=== PATIENT | female | born 1960 | race Caucasian/White ===

== ENCOUNTER 2019-03-29 13:21 | Observation (INO) ==
--- NOTE | 2019-03-29 09:24 | Anesthesia Evaluation PreOp ---
Date of Encounter: 03/29/19 Time of Encounter: 14:36 - Past History Planned Operation: Left Total Knee Arthroplasty Cardiac History: HTN, Hyperlipidemia Pulmonary History: Former smoker (quit 2 years ago), Snore FLORAL DECORATOR History: Other (chronic back pain) Other Medical History: GERD Anesthesia History: No Prior Anesthetic Complications, Past Anesthesia (back surgery) Alcohol Use: none Drug use: none Medications and Allergies Acetaminophen [Pain Relief] 500 mg PO Q6H 7 Days #28 tablet 03/29/19 [Rx] Aripiprazole [Abilify] 15 mg PO QAM 03/29/19 [History] Aspirin Enteric Coated [Aspirin EC] 325 mg PO DAILY 10 Days #20 tablet.dr 03/29/19 [Rx] Calcium Carbonate [Calcium] 500 mg PO DAILY 03/29/19 [History] Citalopram Hydrobromide [Citalopram HBr] 40 mg PO DAILY 03/29/19 [History] Clindamycin [Cleocin] 150 mg PO Q6HR 2 Days #7 capsule 03/29/19 [Rx] Docusate [Colace] 100 mg PO BID 5 Days #10 capsule 03/29/19 [Rx] OxyCODONE Immed Rel [Roxicodone 5 MG] 5 mg PO Q6HR PRN 5 Days #20 tablet 03/29/19 [Rx] Risedronate Sodium [Actonel] 35 mg PO TU 03/29/19 [History] Triamterene/Hydrochlorothiazid [Dyazide 37.5-25 Capsule] 1 cap PO DAILY 03/29/19 [History] Allergy/AdvReac Type Severity Reaction Status Date / Time No Known Allergies Allergy Unverified 07/20/15 11:46 - Meds/Allergy Pre-op Review Medications Reviewed: Yes Allergies Reviewed: Yes Beta Blockers on Current Med List: No Anesthesia Results - Labs Laboratory Tests 03/12/19 03/12/19 03/12/19 09:12 09:12 09:12 WBC 8.1 Hgb 13.0 Hct 40.3 Plt Count 228 PT 11.1 INR 1.0 APTT 30.9 Sodium 140 Potassium 3.0 L BUN 15 Creatinine 0.78 - Imaging EKG: report reviewed (08/29/2018 Sinus rhythm Nonspecific intraventricular conduction delay) Anesthesia Exam O2 Sat Height 1.6 m Height 1.6 m Weight 100.652 kg Weight 103.873 kg O2 Sat by Pulse Oximetry 96 Vital Signs Temp Pulse Resp BP Pulse Ox 97.9 F 79 18 142/85 96 03/29/19 13:32 03/29/19 13:32 03/29/19 13:32 03/29/19 13:32 03/29/19 13:32 Height: 5'3'' Weight: 221 lbs NPO (# of Hours): 8 Pain Scale: 0 Pain Scale Used: Numeric (1 - 10) - HEENT Pupil (Motor): EOMI Mallampati: III Teeth: Normal, Missing Denture Type: Upper: Complete Oral Opening: Greater than 3 - FLORAL DECORATOR LOC: Oriented FLORAL DECORATOR Motor: Normal RUE, Normal LUE, Normal RLE, Normal LLE, Normal Face FLORAL DECORATOR Sensory: Normal: RUE, LUE, RLE, LLE, Face - Cardiac Rhythm: Regular Murmur: None - Pulmonary Breath Sounds: bilateral Clear Respiratory Effort: Symmetrical Anesthesia Assess/Plan ASA Score: 2 Level of consciousness: Cooperative, Oriented, Tranquil Anesthetic Plan: General, Regional Nerve Block Regional Nerve Block Plan: Adductor canal Reason for No Neuroaxial/Regional Block: Patient refusal Monitoring Plan: Standard Monitors Recovery Plan: PACU
--- NOTE | 2019-03-29 10:14 | Discharge Summary ---
<Alvarez Liang M - Last Filed: 03/29/19 10:12> Date of Encounter: 03/29/19 - Discharge Diagnosis (1) Left knee pain Priority: Primary Status: Acute Qualifiers: Chronicity: unspecified Qualified Code(s): M25.562 - Pain in left knee (2) Status post left knee replacement Priority: Primary Status: Acute - Hospital Course Hospital course: Ms. Valverde is a 58 year old female - Time Spent with Patient Total time spent providing and/or coordinating discharge services: - Discharge Medications Prescriptions: New Docusate [Colace] 100 mg PO BID 5 Days #10 capsule Acetaminophen [Pain Relief] 500 mg PO Q6H 7 Days #28 tablet OxyCODONE Immed Rel [Roxicodone 5 MG] 5 mg PO Q6HR PRN 5 Days #20 tablet PRN Reason: Severe Pain Aspirin Enteric Coated [Aspirin EC] 325 mg PO BID 10 Days #20 tablet.dr Potassium Chloride 20 meq PO BID tab.er.prt Ascorbic Acid [Vitamin C] 500 mg PO BIDWM tablet Multivit/Ca/Min/Fe/FA [Thera M Plus] 1 tab PO DAILY tablet Ferrous Sulfate 325 mg PO BIDWM tablet Continued Risedronate Sodium [Actonel] 35 mg PO TU Citalopram Hydrobromide [Citalopram HBr] 40 mg PO DAILY Aripiprazole [Abilify] 15 mg PO QAM Triamterene/Hydrochlorothiazid [Dyazide 37.5-25 Capsule] 1 cap PO DAILY Calcium Carbonate [Calcium] 500 mg PO DAILY Home Medications: Acetaminophen [Pain Relief] 500 mg PO Q6H 7 Days #28 tablet 03/29/19 [Rx] Aripiprazole [Abilify] 15 mg PO QAM 03/29/19 [History] Calcium Carbonate [Calcium] 500 mg PO DAILY 03/29/19 [History] Citalopram Hydrobromide [Citalopram HBr] 40 mg PO DAILY 03/29/19 [History] Docusate [Colace] 100 mg PO BID 5 Days #10 capsule 03/29/19 [Rx] OxyCODONE Immed Rel [Roxicodone 5 MG] 5 mg PO Q6HR PRN 5 Days #20 tablet 03/29/19 [Rx] Risedronate Sodium [Actonel] 35 mg PO TU 03/29/19 [History] Triamterene/Hydrochlorothiazid [Dyazide 37.5-25 Capsule] 1 cap PO DAILY 03/29/19 [History] Aspirin Enteric Coated [Aspirin EC] 325 mg PO BID 10 Days #20 tablet. 04/01/19 [Rx] Ascorbic Acid [Vitamin C] 500 mg PO BIDWM tablet 04/02/19 [Rx] Ferrous Sulfate 325 mg PO BIDWM tablet 04/02/19 [Rx] Multivit/Ca/Min/Fe/FA [Thera M Plus] 1 tab PO DAILY tablet 04/02/19 [Rx] Potassium Chloride 20 meq PO BID tab.er.prt 04/02/19 [Rx] Allergies/Adverse Reactions: Allergy/AdvReac Type Severity Reaction Status Date / Time No Known Allergies Allergy Unverified 07/20/15 11:46 Primary care physician: Tisha Gonzalez - Patient Status Disposition: Transfer SNF Condition: Good - Discharge Instructions Follow Up With: Bj Rhodes MD [Partnered Physician] - 04/28/19 4:40 pm Tisha Gonzalez MD [Primary Care Provider] - Suzan Scruggs CNP [Advanced Practice Nurse] - 04/08/19 9:30 am (also 04/16 at 0930) Nathaly Chavez CNP [Advanced Practice Nurse] - 04/20/19 8:00 am Additional Instructions: Discharge Instructions: Total Knee Replacement Please call [facility] ([phone]), your Primary Care Physician, or report to the Emergency Room if you have any of the following symptoms: Nausea, vomiting, fever greater that 101.5, swelling, chest pain, shortness of breath, increased pain/redness/drainage/odor for your incision site, numbness/tingling, or any other concerning symptoms. ACTIVITY:Weight-bearing as tolerated. You may progress off support (crutches or walker) as tolerated. Incentive Spirometer 10 times an hour. MEDICATIONS: Upon discharge resume your home medications. Take all the medications as prescribed. Take a stool softener if taking narcotic pain medications. Stool softeners are only effective if you drink enough fluids. Drink 6-8 glass of water or fluids a day, unless this is not allowed for another health problem. Despite using stool softeners, if you haven't had a bowel movement in 3 days, please switch to a gentle laxative. Gentle laxatives are sold over the counter. You should have a bowel movement within 24 hours, if not call the office. You will be discharged from the hospital with a prescription for pain medication. You are encouraged to decrease the use of narcotic pain medication as tolerated. Should you require a refill, please call the office. [facility] prescribes narcotic pain medication for only 4-6 weeks after surgery. If you require pain medication beyond this time period, you may be referred to your Primary Care Physician or to the Pain Clinic for further evaluation. Plan ahead for refills on pain medication as many narcotics either need to be picked up at the office or mailed. It is best to call 48-72 hours in advance of needing a prescription refill so you don't run out of medication. To help control the post-operative pain, you may take NSAIDs (Aleve,Advil, Motrin, Ibuprofen, Naprosyn) or Tylenol as prescribed on the bottle in addition to the pain medication. ANTICOAGULATION (blood thinners): Continue your Aspirin, Lovenox or Coumadin as prescribed to help prevent a blood clot in the leg or in the lungs. As long as your incision remains dry and you tolerate the NSAIDs (Aleve, Advil, Motrin, ibuprofen, naprosyn), it is OK to use the NSAIDS while you are taking your anticoagulation medication. Should your incision start to drain, stop the NSAID and contact our office. Common symptoms of blood clot in the legs include: localized pain, swelling, calf tenderness, redness or discoloration of the skin. Blood clot in the lung symptoms include: shortness of breath, rapid pulse, sweating, and chest pain that worsens with deep breathing, coughing up blood, lightheadedness, feelings of anxiety. If you experience any of these symptoms notify your physician immediately, go to the emergency room, or if having trouble breathing, call 911. WOUND CARE: Leave the dressing on for 7 to 10days. You may change the dressing if it becomes saturated greater than 50%. Do not get the dressing wet at anyti me. Wash your hands with antibacterial soap, rinse and dry prior to any wound care. If you have saul the visiting nurse or rehab facility can remove the stapes 10-14 days after surgery and place steri-strips across the wound. Leave the steri-strips in place until they fall off on their won. You may let water from the shower run on top of the steri-strips. If you do not have a visiting nurse or rehab facility, you will need to return to the office at 10-14 days for the saul to be removed. If you have itching or redness around the dressing call the office. FOLLOW-UP: Please follow up with your surgeon in the orthopedic clinic in 4 weeks from the day of surgery. If you have saul that need to be removed, you will need to come back to the office in 10-14 days from the day of surgery. <Ban De La Garza E - Last Filed: 04/02/19 12:53> Orders not resulted at time of discharge: Pending orders 03/29/19 17:51 Surgical Pathology [PTH] Routine Date of Encounter: 04/02/19 Time of Encounter: 11:30 - Discharge Diagnosis (1) Arthritis of left knee Priority: Primary Status: Chronic (2) Status post left knee replacement Priority: Primary Status: Acute (3) Acute blood loss anemia Priority: Secondary Status: Acute (4) Anxiety Priority: Secondary Status: Chronic (5) Hypertension Priority: Secondary Status: Chronic Qualifiers: Hypertension type: unspecified Qualified Code(s): I10 - Essential (primary) hypertension (6) Obesity Priority: Secondary Status: Chronic Qualifiers: Obesity type: unspecified obesity type Obesity classification: adult class 3 (BMI >= 40) Serious obesity comorbidity presence: unspecified whether serious comorbidity present Body mass index: BMI 40.0-44.9 Qualified Code(s): E66.01 - Morbid (severe) obesity due to excess calories; Z68.41 - Body mass index (BMI) 40.0-44.9, adult - Hospital Course Hospital course: Ms. Valverde is a 58 year old female Left robotic-assisted Total knee replacement [arthritis] 03/29/19 Patient seen at bedside. A&Ox3 Dressing and incision c/d/i No calf tenderness, erythema, or warmth. Neurovascularly intact b/l LE. Labwork, vitals, and medications reviewed. Lovenox was held 04/01- secondary to acute blood loss anemia. Patient stable h/h on day of discharge. Will have rehab check periodically to monitor and manage. Patient also with hypokalemia. Patient with known history. Supplementation began with satisfactory increase. Will have patient continue supplementation and continue with lab monitoring and PCP follow up for continued management. Pain control: Adequate Participating in therapy. All questions and concerns addressed. Educated on use of incentive spirometer, ambulation, and hydration. Patient educated on post-operative restrictions and care. Addressed: Intermittent nausea with vomiting x 2 on 04/01. Resolved that evening. Patient denies n/v or bowel concerns today. Admits to today, day of discharge. The patient's postoperative course was uneventful. Progressed from intravenous analgesic needs to oral analgesic needs only. Remained neurovascularly intact and mobilized satisfactorily. All radiographic studies were satisfactory. Patient course and disposition discussed with Dr. Rhodes. Keep outpatient follow up as scheduled. - Time Spent with Patient Total time spent providing and/or coordinating discharge services: Date of admission: 03/31/19 08:48 Primary care physician: Tisha Gonzalez Consults: 03/29/19 19:22 Consult to Nutrition [CONS] Routine Comment: Consulting Provider: NUTRITION Reason for Dietary Consult: Other Other:: Proper nutrition to facilitate wound healing Consult to Occupational Therapy [CONS] Routine Comment: Evaluate, develop and implement POC Reason for Consult: post knee surgery Does patient have active BEDREST order?: No Is patient medically & hemodynamically stable?: Yes Consult to Orthopedic Navigator [CONS] [CONS] Routine Consult to Physical Therapy [CONS] Routine Comment: Evaluate, develop and impliment POC Reason for Consult: post knee surgery Does patient have active BEDREST order?: No Is patient medically & hemodynamically stable?: Yes Consult to Leaf Blender [CONS] Routine Reason for SW Consult: post op joint replacement RT Post Op Consult [CONS] Routine Discharging clinician: Bj Rhodes Anticipated date of discharge: 04/02/19 - VTE Documentation of Mechanical Device: Venous foot pump, device Labs on day of discharge: Labs from last 24 hours 04/01/19 04/01/19 04:39 04:39 WBC 9.0 RBC 2.73 L Hgb 8.4 L Hct 25.8 L MCV 94.5 MCH 30.8 MCHC 32.6 RDW 14.8 H Plt Count 189 MPV 10.7 Sodium 138 Potassium 3.1 L Chloride 103 Carbon Dioxide 29 BUN 14 Creatinine 0.69 Est GFR ( Amer) > 60 Est GFR (Non-Af Amer) > 60 BUN/Creatinine Ratio 20 Glucose 101 Calculated Osmolality 287 Calcium 8.5 L - Impressions ITS Impressions Knee X-Ray 03/30/19 07:39 IMPRESSION: Postop left knee arthroplasty as above D/ / Long Abbasi MD / Long Abbasi MD Interpreting Provider: Long Abbasi MD - Patient Status Functional capacity at discharge: uses cane/walker Overall status at discharge: patient is progressing back to baseline - Diet and Activity Activity: as per physical therapy Diet: advance to your usual diet
--- NOTE | 2019-03-29 14:11 | History & Physical Report ---
Date of Encounter: 03/29/19 Time of Encounter: 14:11 24 Hour HP Update - Instructions Instructions: If the History and Physical is less than 30 days old and was completed prior to A.M. admission and or procedure and has NOT been updated on calendar day of procedure please complete this update prior to performing procedure. - Update Patient reports changes in Medical Condition: No Changes in examination, assessment, or condition: No Changes in Medication: No Preop tests/diagnostics Reviewed: Yes Surgery Remains Indicated: Yes Consent for Planned Operative Procedure(s) Verified: Yes - Pre-Operative Checklist Preoperative Checklist Indicated: No Prophylactic Antibiotic Ordered: Yes Is VTE Prophylaxis Indicated?: Yes
[2019-03-29] MEDS ORDERED: CeFAZolin Syr 2,000MG/20 ML 2,000 MG/20 ML SYRINGE IVPB ONE ×2 (14:33→15:50)
[2019-03-29] MEDS ORDERED: Ringers Solution, Lactated 1,000 ML IVC SCH (14:45)
[2019-03-29] MEDS ORDERED: Celecoxib 200 MG CAPSULE PO ONE (15:36)
[2019-03-29] MEDS ORDERED: Gabapentin 300 MG CAPSULE PO ONE (15:36)
[2019-03-29] MEDS ORDERED: *HR* HYDROmorphone (PF) 1 MG/ML SYRINGE IVP PRN (15:37)
[2019-03-29] MEDS ORDERED: *HR* OxyCODONE Immed Rel 5 MG TABLET PO PRN (15:37)
[2019-03-29] MEDS ORDERED: Ondansetron 4 MG/2 ML VIAL IVP ONE (15:37)
[2019-03-29] MEDS ORDERED: *HR* OxyCODONE ER (12 HR) 10 MG TABLET PO ONE (15:37)
[2019-03-29] MEDS ORDERED: ROPIVACAINE/PF/NS 0.25% 1 EACH SYRINGE INTRAART ONE (16:03)
[2019-03-29] MEDS ORDERED: Ondansetron 4 MG/2 ML VIAL ONE (16:05)
[2019-03-29] MEDS ORDERED: Lidocaine -MPF 2% 2 ML VIAL ONE (16:05)
[2019-03-29] MEDS ORDERED: *HR* FentaNYL (PF) 100 MCG/2 ML VIAL ONE (16:05)
[2019-03-29] MEDS ORDERED: *HR* Midazolam HCl 2 MG/2 ML VIAL ONE (16:05)
[2019-03-29] MEDS ORDERED: *HR* Propofol 200 MG/20 ML VIAL IVP ONE (16:05)
[2019-03-29] MEDS ORDERED: Total Joint Mixture (50 ml) IR ONE (16:15)
[2019-03-29] MEDS ORDERED: Ethanol\\Acetic Acid\\Na Ace\\Ben 1,000 ML IRRIG.SOLN IR ONE (16:36)
--- NOTE | 2019-03-29 16:36 | Anesthesia Procedures ---
Date of Encounter: 03/29/19 Time of Encounter: 16:35 Procedures: Anesthesia - Nerve Block Procedure Date: 03/29/19 Time: 16:35 Surgical Procedure: left tka Checklist: Correct Patient Identifier, Correct procedure, History checked Correct side: Left Blood Thinner: No Monitor Applied: EKG, BP, Pulse Oximetry Supplemental Oxygen via Nasal Cannula (L/min): 2 Indication: Post Op Analgesia (request per dr swift for post op pain control) Pre-op Neuro Deficits: No Block Type: Other (adductor canal) Sterile Technique: Yes Ultrasound used: Yes Anatomy identified: Yes Visual spread of Local: Yes Neuro Stimulation: No Blood on Needle Aspiration: No Smooth Injection of Local: Yes Pain with Injection of Local: No Prep: Chlorhexadine Needle: 22 x 50 mm Stimuplex Local: Ropivacaine (0.25%) Volume (cc): 20 Number of Attempts: 1 Complications: None/effective block Vitals: Vital Signs/O2 Sat/Glucose, Most Current Temp Pulse Resp BP Pulse Ox 03/29/19 16:32 76 16 134/83 100 03/29/19 16:22 73 16 139/98 96 03/29/19 13:32 97.9 F 79 18 142/85 96 Comments: pt tolerated procedure well. no complications. vss.
[2019-03-29] MEDS ORDERED: *HR* PHENYLEPHRINE 1,000 MCG/10 ML SYRINGE IVP ONE (17:17)
[2019-03-29] MEDS ORDERED: Tranexamic Acid 1,000 MG/10 ML VIAL ONE (17:29)
[2019-03-29] MEDS ORDERED: *HR* HYDROMORPHONE 2 MG/ML VIAL ONE (17:29)
--- NOTE | 2019-03-29 18:17 | Orthopedic Operative Note ---
Date of procedure: 03/29/19 Pre-op diagnosis: Left knee arthritis Post-op diagnosis: same Procedure: Procedure: Left robotic-assisted Total knee replacement Estimated blood loss: 300 cc Hardware: Metal and polyethylene replacement. [place] Femur: 3 Tibia: 4 TS insert: 9 Patella: 36 Exam Under anesthesia: 14 degree flexion contracture 5 degree varus as calculated by the robot full flexion and no instability Procedural Notes: Grade 4 arthritic changes all 3 compartments. Operative procedure: The patient was brought to the operating room and placed on the operating room table. After anesthesia was administered the operative knee was examined. Findings were noted in the exam under anesthesia. The operative extremity was prepped and draped in sterile surgical fashion. The patient received IV antibiotics prior to skin incision. A standard midline incision was made centered over the patella. The incision was made through the skin and subcutaneous tissue. A medial parapatellar tendon approach was performed. Care was taken to preserve tissue along the medial aspect of the patella. And to protect the patella tendon. The deep MCL was released off the medial tibia. The infra patella fat pad was excised. The patella was everted and cut was made at the level of the insertion of the quadriceps and patella tendon. The patella was sized the guide was seated and the lug holes are drilled. Knee was brought into flexion. Patient noted to have Grade 4 arthritic changes all 3 compartments. Steinmann pins were placed in the tibia and the femur for the tibial and femoral arrays respectively. Checkpoints were also placed in the tibia and the femur for calculation purposes. The knee including the femur and the tibial registered. Osteophytes, ACL and PCL were excised at this point. Extension and flexion were assessed with a valgus stress components were adjusted on the computer to balance the knee. Femoral cuts were made first with robotic assistance, these included the anterior cut posterior cuts chamfer cuts. Tibial cut was then performed with robotic assistance as well. Bone fragments were removed, as well as the medial and lateral meniscus. The size 3 femoral guide was seated box cut was made lug holes are drilled. The size 4 tibial tray was seated and prepared with the fin cutter. Trial reduction with the 9 TS Rozina revealed extension of 0 degree and 2 degree varus full flexion. No varus valgus instability. Trial reduction revealed excellent patella tracking. All trial components were removed all bony surfaces were irrigated. The Tibia was seated followed by the femur, The selected Rozina size was seated and secured patella. Patient had similar findings for motion and stability. The knee was closed by the PA. The knee was then irrigated out with 2 L of pulse irrigation. The extensor mechanism was closed with #2 FiberWire suture and #2 PDS suture. The subcutaneous tissue was then irrigated and closed deep with #1 PDS suture superficially with 0 PDS suture and skin was closed with zip tie The patient was then placed in a sterile dressing and a postoperative brace and transferred to recovery room in stable condition. Anesthesia: GETA Surgeon: Bj Rhodes Was there an junior assistant manager present: No Estimated blood loss (cc): 300 Condition: stable Disposition: PACU
[2019-03-29] MEDS ORDERED: Naloxone 0.4 MG/ML INJ IVP PRN (19:22)
[2019-03-29] MEDS ORDERED: traMADol 50 MG TABLET PO PRN (19:22)
[2019-03-29] MEDS ORDERED: MOM Conc 10 ML UD.LIQ PO PRN (19:22)
[2019-03-29] MEDS ORDERED: Temazepam 15 MG CAPSULE PO PRN (19:22)
[2019-03-29] MEDS ORDERED: *HR* Promethazine 25 MG/ML VIAL IVP PRN (19:22)
[2019-03-29] MEDS ORDERED: HYDROcodone BIT/Homatropine 5 MG TABLET PO PRN (19:22)
[2019-03-29] MEDS ORDERED: Sennosides 8.6 MG TABLET PO PRN (19:22)
[2019-03-29 19:52] LABS: Hematocrit 35.8 % (35.3-44.9); Hemoglobin 11.5 g/dL (11.5-15.4)
[2019-03-29] MEDS: *HR* OxyCODONE Immed Rel 5 MG TABLET PO PRN (19:54)
[2019-03-29] MEDS: Ringers Solution, Lactated 1,000 ML IVC SCH (19:54)
[2019-03-29] MEDS: Ascorbic Acid 500 MG TABLET PO SCH (19:54)
[2019-03-29] MEDS: *HR* Enoxaparin 30 MG/0.3 ML SYRINGE SQ SCH (19:56)
[2019-03-30 05:08] LABS: Basophils % 0.1 %; Hematocrit 32.1 % (35.3-44.9); Hemoglobin 10.3 g/dL (11.5-15.4); Immature Granulocytes % 0.5 % (0-4); Lymphocytes # 1.2 K/mcL (0.6-4.6); Lymphocytes % 8.4 %; Mean Corpuscular HGB Conc 32.1 g/dL (31.6-35.5); Mean Corpuscular Hemoglobin 29.9 pg (28.0-33.3); Mean Corpuscular Volume 93.3 fL (83.0-100.0); Mean Platelet Volume 10.4 fL (9.4-12.4); Monocytes # 0.6 K/mcL (0.0-1.3); Neutrophils # 12.2 K/mcL (1.6-8.9); Platelet Count 238 K/mcL (140-400); Red Blood Count 3.44 M/mcL (3.82-4.97); Red Cell Distribution Width 14.2 % (11.5-14.5)
[2019-03-30] MEDS: *HR* Enoxaparin 30 MG/0.3 ML SYRINGE SQ SCH ×2 (05:24→17:22)
[2019-03-30 05:28] LABS: Calcium 8.6 mg/dL (8.6-10.3); Potassium 3.5 mEq/L (3.5-5.1)
--- NOTE | 2019-03-30 06:36 | Orthopedics Progress Note ---
Date of Encounter: 03/30/19 Time of Encounter: 06:35 Subjective Interval history: Patient was seen this morning doing well without complaints. Afebrile vital signs stable. Operative extremity: Neurovascularly intact Dressing clean dry and intact Calves nontender Assessment and plan: Continue with postoperative care Hematocrit 32 Objective Vital signs: Vital Signs Temp Pulse Resp BP Pulse Ox 03/29/19 22:29 98.1 F 88 18 124/75 97 03/29/19 21:20 98.1 F 91 16 114/70 96 03/29/19 19:49 97.8 F 97 16 130/72 96 03/29/19 19:20 98.2 F 92 16 138/84 96 03/29/19 19:03 99.9 F H 98 16 132/82 95 03/29/19 18:53 107 16 128/98 97 03/29/19 18:43 103 16 151/91 96 03/29/19 18:33 98.7 F 110 16 169/107 95 03/29/19 16:46 74 16 134/83 100 03/29/19 16:32 76 16 134/83 100 03/29/19 16:22 73 16 139/98 96 03/29/19 13:32 97.9 F 79 18 142/85 96 Intake and Output 03/29/19 03/29/19 03/30/19 15:59 23:59 07:59 Intake Total 20 / 20 100 / 100 Output Total 300 / 300 Balance -280 / -280 100 / 100 Intake: IV Fluids 20 / 20 100 / 100 Ancef Syringe 2,000 MG/20 ML 2, 20 / 20 000 mg In 20 ml @ 200 mls/hr IVPB PREOP ONE Rx#:[id number] Ancef 2,000 MG In 0.9 % Sodium 100 / 100 Chloride 100 ML @ 200 mls/hr IVPB Q8HR LOR[facility] Rx#:[id number] Output: Estimated Blood Loss 300 / 300 Other: Weight 100.652 kg 100.5 kg Blood Glucose* 105 164 Patient Weight 03/30/19 23:59 Weight 100.5 kg - Labs CBC & BMP: 03/30/19 04:50 03/30/19 04:50 Labs: Abnormal lab results WBC 14.0 K/mcL (4.3-11.1) H 03/30/19 04:50 RBC 3.44 M/mcL (3.82-4.97) L 03/30/19 04:50 Hgb 10.3 g/dL (11.5-15.4) L 03/30/19 04:50 Hct 32.1 % (35.3-44.9) L 03/30/19 04:50 Neutrophils # 12.2 K/mcL (1.6-8.9) H 03/30/19 04:50 Creatinine 1.33 mg/dL (0.60-1.20) H 03/30/19 04:50 Est GFR ( Amer) 50 (> 60) L 03/30/19 04:50 Est GFR (Non-Af Amer) 41 (> 60) L 03/30/19 04:50 Glucose 143 mg/dL (70-105) H 03/30/19 04:50 POC Glucose 164 mg/dL (70-99) H 03/30/19 00:36 Consult Discharge Plan - Plan Referrals: Tisha Gonzalez MD [Primary Care Provider] - Prescriptions: Aspirin Enteric Coated [Aspirin EC] 325 mg PO DAILY 10 Days #20 tablet.dr Prescription Printed Clindamycin [Cleocin] 150 mg PO Q6HR 2 Days #7 capsule Prescription Printed Docusate [Colace] 100 mg PO BID 5 Days #10 capsule Prescription Printed Acetaminophen [Pain Relief] 500 mg PO Q6H 7 Days #28 tablet Prescription Printed OxyCODONE Immed Rel [Roxicodone 5 MG] 5 mg PO Q6HR PRN 5 Days #20 tablet PRN Reason: Severe Pain Prescription Printed
[2019-03-30] MEDS: Ascorbic Acid 500 MG TABLET PO SCH ×2 (08:44→17:23)
[2019-03-30] MEDS: ARIPiprazole 10 MG TABLET PO SCH (08:44)
[2019-03-30] MEDS: Multivit/Ca/Min/Fe/FA 1 TAB TABLET PO SCH (08:45)
[2019-03-30] MEDS ORDERED: NON-FORMULARY MEDICATION 1 EACH EACH (Risedronate Sodium [Actonel] 35 MG) PO SCH (14:22)
--- NOTE | 2019-03-30 18:27 | Event Note ---
Date of Encounter: 03/30/19 Time of Encounter: 15:30 PCR - POD#1 s/p left TKR 03/29/19 Patient seen at bedside, without complaints. A&O x 3 Afebrile, vital signs stable except for hypotensive this morning. Will continue to monitor. Dressings did have 2 quarter sized areas of bleeding to middle and distal incision that will continue to monitor. no calf tenderness to palpation, good dorsiflexion of foot, sensation intact distally. Labs reviewed. H/H - 10.3/32.1 stable, asymptomatic Kidney function labs declined today - will continue fluids IV and encouraged PO fluid intake. she was having didficulty with urinating, bladder scan this morning roughly 100ml. she was able to urinate on own just prior to exam and not having any symptoms at this time - continue to monitor. Pain control: adequate Participating in PT. All questions and concerns addressed. Educated on use of incentive spirometer. Encouraged ambulation and proper hydration. Patient educated on post-operative restrictions and post-operative care. Assessment and plan: Continue with postoperative care Discharge plan: ECF, awaiting auth.
[2019-03-30] MEDS: Ringers Solution, Lactated 1,000 ML IVC SCH ×2 (19:06→20:47)
[2019-03-30] MEDS: *HR* OxyCODONE Immed Rel 5 MG TABLET PO PRN (23:22)
[2019-03-31 05:16] LABS: Basophils % 0.2 %; Eosinophils # 0.1 K/mcL (0.0-0.6); Eosinophils % 0.8 %; Hematocrit 27.5 % (35.3-44.9); Hemoglobin 8.9 g/dL (11.5-15.4); Immature Granulocytes % 0.9 % (0-4); Lymphocytes # 2.4 K/mcL (0.6-4.6); Lymphocytes % 22.3 %; Mean Corpuscular HGB Conc 32.4 g/dL (31.6-35.5); Mean Corpuscular Hemoglobin 29.8 pg (28.0-33.3); Mean Platelet Volume 10.9 fL (9.4-12.4); Monocytes # 1.1 K/mcL (0.0-1.3); Monocytes % 10.5 %; Platelet Count 205 K/mcL (140-400); Red Blood Count 2.99 M/mcL (3.82-4.97); Red Cell Distribution Width 14.5 % (11.5-14.5); Segmented Neutrophils % 65.3 %; White Blood Count 10.7 K/mcL (4.3-11.1)
[2019-03-31 05:31] LABS: BUN/Creatinine Ratio 22 (6-26); Blood Urea Nitrogen 20 mg/dL (6-20); Calcium 8.6 mg/dL (8.6-10.3); Carbon Dioxide 27 mEq/L (23-29); Chloride 103 mEq/L (98-107); Glucose 121 mg/dL (70-105); Osmolality,Calculated 284 (280-300); Potassium 2.8 mEq/L (3.5-5.1); Sodium 135 mEq/L (136-145); eGFR For African Americans > 60 (> 60); eGFR For Non-African Americans > 60 (> 60)
[2019-03-31] MEDS: *HR* Enoxaparin 30 MG/0.3 ML SYRINGE SQ SCH ×2 (06:00→17:34)
--- NOTE | 2019-03-31 08:22 | Orthopedics Progress Note ---
Date of Encounter: 03/31/19 Time of Encounter: 08:22 - Assessment and Plan (1) Acute blood loss anemia Current Visit: Yes Status: Acute Subjective Interval history: Patient was seen this morning doing well without complaints. Afebrile vital signs stable. Operative extremity: Neurovascularly intact Dressing clean dry and intact Calves nontender Assessment and plan: Continue with postoperative care Potassium 2.8 due to an oral supplementation, hemoglobin 8.9 Objective Vital signs: Vital Signs Temp Pulse Resp BP Pulse Ox 03/31/19 06:29 98.3 F 70 16 113/73 95 03/31/19 03:49 97.9 F 72 16 126/76 97 03/30/19 22:13 98.5 F 72 17 111/75 96 03/30/19 19:46 98 03/30/19 19:00 98.4 F 70 16 97/66 98 03/30/19 16:40 97.8 F 67 16 101/70 95 03/30/19 12:04 98.0 F 65 18 99/64 95 Intake and Output 03/30/19 03/31/19 03/31/19 23:59 07:59 15:59 Intake Total 240 / 240 Output Total 250 / 250 Balance -250 / -150 240 / 240 Intake: Oral 240 / 240 Output: Urine 250 / 250 Other: Stool Size Small Moderate Stool Consistency liquid soft soft Stool Color Green Green # Voids 1 1 # Bowel Movements 1 1 - Labs CBC & BMP: 03/31/19 04:41 03/31/19 04:41 Labs: Abnormal lab results WBC 14.0 K/mcL (4.3-11.1) H 03/30/19 04:50 RBC 2.99 M/mcL (3.82-4.97) L 03/31/19 04:41 Hgb 8.9 g/dL (11.5-15.4) L 03/31/19 04:41 Hct 27.5 % (35.3-44.9) L 03/31/19 04:41 Neutrophils # 12.2 K/mcL (1.6-8.9) H 03/30/19 04:50 Sodium 135 mEq/L (136-145) L 03/31/19 04:41 Potassium 2.8 mEq/L (3.5-5.1) L 03/31/19 04:41 Creatinine 1.33 mg/dL (0.60-1.20) H 03/30/19 04:50 Est GFR ( Amer) 50 (> 60) L 03/30/19 04:50 Est GFR (Non-Af Amer) 41 (> 60) L 03/30/19 04:50 Glucose 121 mg/dL (70-105) H 03/31/19 04:41 POC Glucose 164 mg/dL (70-99) H 03/30/19 00:36 Consult Discharge Plan - Plan Referrals: Tisha Gonzalez MD [Primary Care Provider] - Prescriptions: Aspirin Enteric Coated [Aspirin EC] 325 mg PO DAILY 10 Days #20 tablet.dr Prescription Printed Clindamycin [Cleocin] 150 mg PO Q6HR 2 Days #7 capsule Prescription Printed Docusate [Colace] 100 mg PO BID 5 Days #10 capsule Prescription Printed Acetaminophen [Pain Relief] 500 mg PO Q6H 7 Days #28 tablet Prescription Printed OxyCODONE Immed Rel [Roxicodone 5 MG] 5 mg PO Q6HR PRN 5 Days #20 tablet PRN Reason: Severe Pain Prescription Printed
[2019-03-31] MEDS: ARIPiprazole 10 MG TABLET PO SCH (08:59)
[2019-03-31] MEDS: Multivit/Ca/Min/Fe/FA 1 TAB TABLET PO SCH (08:59)
[2019-03-31] MEDS: Ascorbic Acid 500 MG TABLET PO SCH ×2 (09:01→17:33)
[2019-03-31] MEDS: *HR* OxyCODONE Immed Rel 5 MG TABLET PO PRN ×2 (09:03→15:31)
[2019-03-31] MEDS: Ondansetron 4 MG/2 ML VIAL IVP PRN (09:30)
--- NOTE | 2019-03-31 17:50 | Event Note ---
Date of Encounter: 03/31/19 Time of Encounter: 12:50 PCR - POD#2 s/p left TKR 03/29/19 Patient seen at bedside, without complaints. A&O x 3 Afebrile, vital signs stable. hypotension resolved Increase in drainage to distal end of incision noted after therapy today. Apply pressure dressing and continue to monitor. no calf tenderness to palpation, good dorsiflexion of foot, sensation intact distally. Labs reviewed. H/H - 8.9/27.5 - did decrease but asymptomatic - continue to monitor Kidney function labs improved, continues to urinate well with no further issues Pain control: adequate Participating in PT. All questions and concerns addressed. Educated on use of incentive spirometer. Encouraged ambulation and proper hydration. Patient educated on post-operative restrictions and post-operative care. Assessment and plan: Continue with postoperative care Discharge plan: ECF, awaiting auth.
[2019-04-01 04:58] LABS: Hematocrit 25.8 % (35.3-44.9); Hemoglobin 8.4 g/dL (11.5-15.4); Mean Corpuscular HGB Conc 32.6 g/dL (31.6-35.5); Mean Corpuscular Hemoglobin 30.8 pg (28.0-33.3); Mean Corpuscular Volume 94.5 fL (83.0-100.0); Mean Platelet Volume 10.7 fL (9.4-12.4); Platelet Count 189 K/mcL (140-400); Red Blood Count 2.73 M/mcL (3.82-4.97); Red Cell Distribution Width 14.8 % (11.5-14.5)
[2019-04-01 05:19] LABS: BUN/Creatinine Ratio 20 (6-26); Blood Urea Nitrogen 14 mg/dL (6-20); Calcium 8.5 mg/dL (8.6-10.3); Carbon Dioxide 29 mEq/L (23-29); Chloride 103 mEq/L (98-107); Glucose 101 mg/dL (70-105); Osmolality,Calculated 287 (280-300); Potassium 3.1 mEq/L (3.5-5.1); Sodium 138 mEq/L (136-145); eGFR For African Americans > 60 (> 60); eGFR For Non-African Americans > 60 (> 60)
[2019-04-01] MEDS: *HR* Enoxaparin 30 MG/0.3 ML SYRINGE SQ SCH ×2 (05:41→17:01)
[2019-04-01] MEDS: ARIPiprazole 10 MG TABLET PO SCH (07:59)
[2019-04-01] MEDS: Multivit/Ca/Min/Fe/FA 1 TAB TABLET PO SCH (07:59)
[2019-04-01] MEDS: Ascorbic Acid 500 MG TABLET PO SCH ×2 (08:00→16:00)
--- NOTE | 2019-04-01 08:25 | Orthopedics Progress Note ---
Date of Encounter: 04/01/19 Time of Encounter: 08:25 - Assessment and Plan (1) Acute blood loss anemia Current Visit: Yes Status: Acute Subjective Interval history: Patient was seen this morning doing well without complaints. Afebrile vital signs stable. Operative extremity: Neurovascularly intact Dressing clean dry and intact Calves nontender Assessment and plan: Continue with postoperative care Awaiting placement hypokalemia improvement with supplementation Objective Vital signs: Vital Signs Temp Pulse Resp BP Pulse Ox 04/01/19 07:40 98.0 F 84 20 116/84 96 04/01/19 03:08 98.6 F 75 18 104/70 93 03/31/19 22:31 98.5 F 77 20 116/80 95 03/31/19 19:25 98.2 F 79 20 113/79 96 03/31/19 15:13 98.5 F 71 16 124/75 95 03/31/19 11:11 97.9 F 75 16 117/69 97 03/31/19 10:50 97 Intake and Output 03/31/19 04/01/19 04/01/19 23:59 07:59 15:59 Intake Total 360 / 840 Output Total 350 / 750 Balance Intake: Oral 360 / 840 Output: Urine 350 / 750 Other: Meal Dinner Percent of Meal Consumed 100% # Voids 1 - Labs CBC & BMP: 04/01/19 04:39 04/01/19 04:39 Labs: Abnormal lab results WBC 14.0 K/mcL (4.3-11.1) H 03/30/19 04:50 RBC 2.73 M/mcL (3.82-4.97) L 04/01/19 04:39 Hgb 8.4 g/dL (11.5-15.4) L 04/01/19 04:39 Hct 25.8 % (35.3-44.9) L 04/01/19 04:39 RDW 14.8 % (11.5-14.5) H 04/01/19 04:39 Neutrophils # 12.2 K/mcL (1.6-8.9) H 03/30/19 04:50 Sodium 135 mEq/L (136-145) L 03/31/19 04:41 Potassium 3.1 mEq/L (3.5-5.1) L 04/01/19 04:39 Creatinine 1.33 mg/dL (0.60-1.20) H 03/30/19 04:50 Est GFR ( Amer) 50 (> 60) L 03/30/19 04:50 Est GFR (Non-Af Amer) 41 (> 60) L 03/30/19 04:50 Glucose 121 mg/dL (70-105) H 03/31/19 04:41 POC Glucose 164 mg/dL (70-99) H 03/30/19 00:36 Calcium 8.5 mg/dL (8.6-10.3) L 04/01/19 04:39 Consult Discharge Plan - Plan Referrals: Tisha Gonzalez MD [Primary Care Provider] -
[2019-04-01] MEDS: Ondansetron 4 MG/2 ML VIAL IVP PRN (14:00)
[2019-04-02 05:32] LABS: Basophils % 0.4 %; Eosinophils # 0.2 K/mcL (0.0-0.6); Eosinophils % 2.2 %; Hemoglobin 8.4 g/dL (11.5-15.4); Lymphocytes % 30.8 %; Mean Corpuscular HGB Conc 32.3 g/dL (31.6-35.5); Mean Corpuscular Hemoglobin 30.5 pg (28.0-33.3); Mean Corpuscular Volume 94.5 fL (83.0-100.0); Mean Platelet Volume 10.9 fL (9.4-12.4); Monocytes # 0.9 K/mcL (0.0-1.3); Neutrophils # 5.5 K/mcL (1.6-8.9); Nucleated Red Blood Cells 0.4 /100 WBC (0); Platelet Count 216 K/mcL (140-400); Red Blood Count 2.75 M/mcL (3.82-4.97); Segmented Neutrophils % 56.6 %; White Blood Count 9.7 K/mcL (4.3-11.1)
[2019-04-02 05:45] LABS: BUN/Creatinine Ratio 21 (6-26); Blood Urea Nitrogen 13 mg/dL (6-20); Calcium 8.8 mg/dL (8.6-10.3); Carbon Dioxide 29 mEq/L (23-29); Chloride 102 mEq/L (98-107); Glucose 104 mg/dL (70-105); Osmolality,Calculated 286 (280-300); Potassium 3.2 mEq/L (3.5-5.1); Sodium 138 mEq/L (136-145); eGFR For African Americans > 60 (> 60); eGFR For Non-African Americans > 60 (> 60)
[2019-04-02] MEDS: *HR* Enoxaparin 30 MG/0.3 ML SYRINGE SQ SCH (06:07)
--- NOTE | 2019-04-02 06:23 | Orthopedics Progress Note ---
Date of Encounter: 04/02/19 Time of Encounter: 06:23 - Assessment and Plan (1) Acute blood loss anemia Current Visit: Yes Status: Acute Subjective Interval history: Patient was seen this morning doing well without complaints. Afebrile vital signs stable. Operative extremity: Neurovascularly intact Dressing clean dry and intact Calves nontender Assessment and plan: Continue with postoperative care Awaiting placement hb 8.4 k 3.2 Objective Vital signs: Vital Signs Temp Pulse Resp BP Pulse Ox 04/02/19 05:21 98.2 F 73 16 109/77 96 04/02/19 01:18 98.6 F 77 16 117/83 95 04/01/19 21:37 98.7 F 79 17 123/78 95 04/01/19 16:30 99.8 F H 90 18 127/75 95 04/01/19 12:22 98.9 F 84 18 127/81 96 04/01/19 07:40 98.0 F 84 20 116/84 96 Intake and Output 04/01/19 04/01/19 04/02/19 15:59 23:59 07:59 Intake Total 400 / 400 0 / 0 Output Total 0 / 0 0 / 0 Balance 400 / 400 0 / 0 Intake: Oral 0 / 0 0 / 0 Free Water 400 / 400 Output: Urine 0 / 0 0 / 0 Other: # Voids 1 1 Weight 105.38 kg Patient Weight 04/02/19 23:59 Weight 105.38 kg - Labs CBC & BMP: 04/02/19 04:56 04/02/19 04:56 Labs: Abnormal lab results WBC 14.0 K/mcL (4.3-11.1) H 03/30/19 04:50 RBC 2.75 M/mcL (3.82-4.97) L 04/02/19 04:56 Hgb 8.4 g/dL (11.5-15.4) L 04/02/19 04:56 Hct 26.0 % (35.3-44.9) L 04/02/19 04:56 RDW 15.0 % (11.5-14.5) H 04/02/19 04:56 Neutrophils # 12.2 K/mcL (1.6-8.9) H 03/30/19 04:50 Nucleated RBCs/100 WBC 0.4 /100 WBC (0) H 04/02/19 04:56 Sodium 135 mEq/L (136-145) L 03/31/19 04:41 Potassium 3.2 mEq/L (3.5-5.1) L 04/02/19 04:56 Creatinine 1.33 mg/dL (0.60-1.20) H 03/30/19 04:50 Est GFR ( Amer) 50 (> 60) L 03/30/19 04:50 Est GFR (Non-Af Amer) 41 (> 60) L 03/30/19 04:50 Glucose 121 mg/dL (70-105) H 03/31/19 04:41 POC Glucose 164 mg/dL (70-99) H 03/30/19 00:36 Calcium 8.5 mg/dL (8.6-10.3) L 04/01/19 04:39 Consult Discharge Plan - Plan Referrals: Tisha Gonzalez MD [Primary Care Provider] - Prescriptions: Aspirin Enteric Coated [Aspirin EC] 325 mg PO BID 10 Days #20 tablet.
[2019-04-02] MEDS: Multivit/Ca/Min/Fe/FA 1 TAB TABLET PO SCH (08:03)
[2019-04-02] MEDS: ARIPiprazole 10 MG TABLET PO SCH (08:03)
[2019-04-02] MEDS: Ascorbic Acid 500 MG TABLET PO SCH (08:03)
--- NOTE | 2019-04-02 12:57 | Physician Discharge Referral ---
ExtendedCare Referral Info Transfer To: [facility] Provider in Charge: Dr. Bj Rhodes - Diagnosis (1) Arthritis of left knee Priority: Primary Status: Chronic (2) Status post left knee replacement Priority: Primary Status: Acute (3) Acute blood loss anemia Priority: Secondary Status: Acute (4) Anxiety Priority: Secondary Status: Chronic (5) Hypertension Priority: Secondary Status: Chronic (6) Obesity Priority: Secondary Status: Chronic (7) Hypokalemia Priority: Secondary Status: Chronic Expected Duration of Placement: less than 30 days Prognosis: Good Aware of Diagnosis: Patient Aware of Prognosis: Patient - Transfer Medications Prescriptions: Aspirin Enteric Coated [Aspirin EC] 325 mg PO BID 10 Days #20 tablet. Home Medications: Acetaminophen [Pain Relief] 500 mg PO Q6H 7 Days #28 tablet 03/29/19 [Rx] Aripiprazole [Abilify] 15 mg PO QAM 03/29/19 [History] Calcium Carbonate [Calcium] 500 mg PO DAILY 03/29/19 [History] Citalopram Hydrobromide [Citalopram HBr] 40 mg PO DAILY 03/29/19 [History] Docusate [Colace] 100 mg PO BID 5 Days #10 capsule 03/29/19 [Rx] OxyCODONE Immed Rel [Roxicodone 5 MG] 5 mg PO Q6HR PRN 5 Days #20 tablet 03/29/19 [Rx] Risedronate Sodium [Actonel] 35 mg PO TU 03/29/19 [History] Triamterene/Hydrochlorothiazid [Dyazide 37.5-25 Capsule] 1 cap PO DAILY 03/29/19 [History] Aspirin Enteric Coated [Aspirin EC] 325 mg PO BID 10 Days #20 tablet. 04/01/19 [Rx] Ascorbic Acid [Vitamin C] 500 mg PO BIDWM tablet 04/02/19 [Rx] Ferrous Sulfate 325 mg PO BIDWM tablet 04/02/19 [Rx] Multivit/Ca/Min/Fe/FA [Thera M Plus] 1 tab PO DAILY tablet 04/02/19 [Rx] Potassium Chloride 20 meq PO BID tab.er.prt 04/02/19 [Rx] Allergies/Adverse Reactions: Allergy/AdvReac Type Severity Reaction Status Date / Time No Known Allergies Allergy Unverified 07/20/15 11:46 - Respiratory Orders Smoking Cessation: Smoking cessation has been advised. For more information, call the [place] Tobacco Quit Line at 2-874-VCNM-NOW. - Lab Orders Lab Orders: CBC (monitor H/H Q72 hours), Other (include drug levels w/frequency) (BMP q 72 hrs) - Ancillary Orders May use pressure relief devices daily prn, May go on VI w/family/respon republican w/meds at nurse discretion PRN, May consult with Dentist, Parking Meter Attendant, Light Armored Vehicle Officer PRN - Mobility Orders Chair, Ambulate - Rehabiliation Orders Rehab Potential: Good Rehab Orders: Evaluation for Physical Therapy, Evaluation for Occupational Therapy Other: Total Knee replacement Precautions x 6 weeks Apply cold therapy wrap 3-6x/day for 20 minutes at a time. Encourage ambulation throughout the day and incentive spirometer 10x/hour. Elevate affected extremity above heart as tolerated. Brace: Wear knee immobilizer at night x 2 weeks. Opsite placed. Keep dressing intact until first follow up appointment. If greater than 50% saturated, notify office, remove dressing and place appropriate dressing back in place. Leave Zipline intact. Opsite dressing is water resistant, not water-proof. OK to shower, but do not get dressing wet. - Treatments Skin tear care topically daily PRN per policy - Diet Orders Regular CERTIFICATION: I certify that the transfer of the above named patient to an Extended Care Facility is necessary for the continuing treatment of the diagnosis listed. The above information is true and accurate reflection of patient's current condition. Confidential - Redisclosure prohibited without a patient's written consent.
[2019-04-02 13:36] VITALS: BP 147/73
== END 2019-04-02 14:35 ==
LOC: 3NENU 13:21 → SAMDAY 13:21 → 3NENU 19:23
PROVIDERS: ADMIT Orthopaedic Surgery; ATTEND Orthopaedic Surgery

== ENCOUNTER 2021-09-26 04:14 | Observation (INO) ==
[2021-09-26] MEDS ORDERED: Aspirin 325 MG TABLET PO ONE (04:35)
[2021-09-26] MEDS ORDERED: Nitroglycerin 0.4 MG TAB.SUBL SL PRN (04:35)
[2021-09-26 05:04] LABS: Basophils % 0.4 %; Eosinophils # 0.2 K/mcL (0.0-0.6); Eosinophils % 1.8 %; Hematocrit 39.9 % (35.3-44.9); Hemoglobin 13.1 g/dL (11.5-15.4); Immature Granulocytes % 0.4 % (0-4); Lymphocytes # 2.6 K/mcL (0.6-4.6); Lymphocytes % 24.7 %; Mean Corpuscular HGB Conc 32.8 g/dL (31.6-35.5); Mean Corpuscular Hemoglobin 28.5 pg (28.0-33.3); Mean Corpuscular Volume 86.7 fL (83.0-100.0); Mean Platelet Volume 11.1 fL (9.4-12.4); Monocytes # 1.2 K/mcL (0.0-1.3); Monocytes % 11.6 %; Neutrophils # 6.5 K/mcL (1.6-8.9); Platelet Count 258 K/mcL (140-400); Red Cell Distribution Width 14.7 % (11.5-14.5); Segmented Neutrophils % 61.1 %; White Blood Count 10.6 K/mcL (4.3-11.1)
[2021-09-26] MEDS: Morphine Sulfate 2 MG/ML SYRINGE IVP ONE ×2 (05:07→05:08)
[2021-09-26] MEDS ORDERED: 0.9 % Sodium Chloride 500 ML IVC ONE (05:21)
[2021-09-26 05:25] LABS: BUN/Creatinine Ratio 20 (6-26); Blood Urea Nitrogen 18 mg/dL (6-20); Calcium 9.3 mg/dL (8.6-10.3); Carbon Dioxide 25 mEq/L (23-29); Chloride 97 mEq/L (98-107); Glucose 105 mg/dL (70-105); Osmolality,Calculated 282 (280-300); Potassium 2.9 mEq/L (3.5-5.1); Sodium 135 mEq/L (136-145); eGFR For African Americans > 60 (> 60); eGFR For Non-African Americans > 60 (> 60)
[2021-09-26 05:26] LABS: Troponin I < 0.03 ng/mL (< 0.04)
[2021-09-26] MEDS ORDERED: Ondansetron 4 MG/2 ML VIAL IVP PRN (07:22)
[2021-09-26] MEDS ORDERED: Acetaminophen 325 MG TABLET PO PRN (07:22)
[2021-09-26] MEDS ORDERED: Naloxone 0.4 MG/ML INJ IVP PRN (07:22)
[2021-09-26 09:07] LABS: Chol/HDL Ratio 3.1 (0-4.9); Cholesterol 231 mg/dL (< 200); HDL Cholesterol 74 mg/dL (40-59); LDL Cholesterol,Calculated 132 mg/dL (< 100); Triglycerides 123 mg/dL (< 150)
[2021-09-26 10:27] LABS: Estimated Average Glucose 117 mg/dl; Hemoglobin A1C 5.7 %
[2021-09-26] MEDS ORDERED: Regadenoson 0.4 MG/5 ML SYRINGE IVP ONE (13:15)
[2021-09-26 14:41] VITALS: BP 134/85; PULSE 88; TEMP 98; O2SAT 98
[2021-09-26] MEDS ORDERED: *HR* Heparin 5,000 UNIT/ML VIAL SQ SCH (18:00)
== END 2021-09-26 17:50 | disposition home or self-care (01) ==
LOC: 2ANU 04:14 → EMEROOARM 04:14 → 3BNU 06:50
PROVIDERS: ADMIT Internal Medicine; ATTEND Internal Medicine